=== PATIENT | female | born 1945 | race Hispanic/Latino ===

== ENCOUNTER 2023-07-28 05:56 | Day surgery (SDC) | payer OTHER, MEDICARE ==
[2023-07-23 10:35] LABS: BASOPHILS # (AUTO) 0.04 K/uL (0.00-0.20); BASOPHILS % (AUTO) 0.6 % (0.0-5.0); EOSINOPHILS # (AUTO) 0.17 K/uL (0.00-0.70); EOSINOPHILS % (AUTO) 2.7 % (0.0-8.0); HEMATOCRIT 43.6 % (36-48); IMMATURE GRANULOCYTE ABSOLUTE 0.02 K/uL (0-1); LYMPHOCYTES # (AUTO) 2.4 K/uL (1.0-4.8); LYMPHOCYTES % (AUTO) 38.9 % (21.0-51.0); MEAN CORPUSCULAR HEMOGLOBIN 30.6 pg (27.0-33.0); MEAN CORPUSCULAR VOLUME 92.6 fL (79-99); MONOCYTES # (AUTO) 0.4 K/uL (0.1-1.0); MONOCYTES % (AUTO) 6.5 % (3.0-13.0); NEUTROPHILS # (AUTO) 3.2 K/uL (1.8-7.7); PLATELET COUNT (AUTO) 216 K/uL (130-400); RED BLOOD CELL COUNT(AUTO) 4.71 MIL/uL (4.00-5.50); RED CELL DISTRIBUTION WIDTH 13.4 % (11.0-15.5); WHITE BLOOD COUNT (AUTO) 6.3 K/uL (4.8-10.8)
[2023-07-23 10:45] VITALS: BP 119/66; PULSE 68; RESP 18
[2023-07-23 10:50] LABS: CREATININE 0.6 mg/dL (0.5-1.5); POTASSIUM 4.4 mmol/L (3.5-5.1)
[2023-07-23 10:53] LABS: INR <= 0.93 (0.85-1.15); PROTHROMBIN TIME 10.8 SEC (9.6-11.6)
[2023-07-23 10:54] LABS: PARTIAL THROMBOPLASTIN TIME 28.3 SEC (26.3-35.5)
[~2023-07-28] VITALS: Ht 154.9 cm; Wt 85.9 kg
[2023-07-28] VITALS (12 sets, daily range): BP systolic 101–139; BP diastolic 55–76; PULSE 65–75; RESP 10–22
[~2023-07-28 05:56] MED LIST: GABA-529 PO
[2023-07-28] MEDS: 0.9%NACL 1000ML 1,000 ML IV ONE (06:34)
[2023-07-28] MEDS ORDERED: MULT-1283 PO (06:59)
[2023-07-28] MEDS ORDERED: CALC1TAB2 PO (06:59)
[2023-07-28] MEDS ORDERED: GLUC-252 PO (06:59)
[2023-07-28] MEDS ORDERED: GLUC1CAP7 PO (06:59)
[2023-07-28] MEDS ORDERED: ACET-2027 PO (06:59)
[2023-07-28] MEDS ORDERED: CHOL500051 PO (06:59)
[2023-07-28] MEDS ORDERED: LIDOCAINE HCL 400MG/20ML VIAL ONE (07:06)
[2023-07-28] MEDS ORDERED: IODIXANOL 320 MG/ML 100 ML VIAL ONE (07:06)
[2023-07-28] MEDS ORDERED: HEPARIN 10,000 UNIT/10ML (1,000 UNIT/ML) VIAL ONE (07:07)
[2023-07-28] MEDS ORDERED: NITROGLYCERIN 50MG VIAL ONE (07:07)
[2023-07-28] MEDS ORDERED: MIDAZOLAM HCL 1 MG/ML 2ML VIAL ONE (07:25)
[2023-07-28] MEDS ORDERED: FENTANYL CITRATE PF 50 MCG/1 ML 2ML VIAL ONE (07:25)
[2023-07-28] MEDS: 0.9%NACL 1000ML 1,000 ML IV SCH (08:00)
[2023-07-28] MEDS ORDERED: GLUCAGON 1MG KIT 1 MG ML IM PRN (08:00)
[2023-07-28] MEDS ORDERED: DEXTROSE 50%-WATER 50 ML DISP.SYRIN IV PRN (08:00)
== END 2023-07-28 12:15 | disposition home or self-care (01) ==
LOC: DAH 05:56
PROVIDERS: ATTEND Internal Medicine Cardiovascular Disease
DX: I87.1 Compression of vein (principal); I87.2 Venous insufficiency (chronic) (peripheral); E66.9 Obesity, unspecified; Z79.899 Other long term (current) drug therapy; Z79.01 Long term (current) use of anticoagulants; Z90.49 Acquired absence of other specified parts of digestive tract; Z98.890 Other specified postprocedural states; Z98.41 Cataract extraction status, right eye; Z82.49 Family history of ischemic heart disease and other diseases of the circulatory system; Z82.3 Family history of stroke; Z83.3 Family history of diabetes mellitus; Z80.9 Family history of malignant neoplasm, unspecified; Z68.34 Body mass index [BMI] 34.0-34.9, adult
CPT/HCPCS: 80048; 85025; 85610; 85730; 36415; 75822; 36012; 37252; 37253 ×5; C1769; C1894 ×2; C1753; J3010; J3490 ×2; J7030; J2250; J1644; Q9967; A4215; A4222; A4221; A4663; A4216; A4606; A4223 ×3; 96360; 96361; 99156; 99157

== ENCOUNTER → 2023-09-10 | Outpatient (CLI) | payer OTHER, MEDICARE ==
[~2023-09-10] MED LIST changes: +ACET-2027 PO; +CALC1TAB2 PO; +CHOL500051 PO; +GLUC-252 PO; +GLUC1CAP7 PO; +MULT-1283 PO
[2023-09-10] MEDS: REGADENOSON 0.4 MG/5 ML PF SYG IVP ONE (13:56)
== END | disposition home or self-care (01) ==
LOC: SHCH 07:55
PROVIDERS: ATTEND Internal Medicine Cardiovascular Disease
DX: I20.0 Unstable angina (principal)
CPT/HCPCS: 78452; 96374; 93017; J2785; A9500 ×2

== ENCOUNTER → 2023-09-11 | Outpatient (CLI) | payer OTHER, MEDICARE | LOC: SHCH 08:46 | PROVIDERS: ATTEND Internal Medicine Cardiovascular Disease | DX: I20.0 Unstable angina (principal) | CPT/HCPCS: 93306 ==

== ENCOUNTER → 2023-12-22 | Outpatient (CLI) | payer OTHER, MEDICARE ==
[2023-12-22 16:20] LABS: BASOPHILS # (AUTO) 0.04 K/uL (0.00-0.20); BASOPHILS % (AUTO) 0.6 % (0.0-5.0); EOSINOPHILS # (AUTO) 0.23 K/uL (0.00-0.70); EOSINOPHILS % (AUTO) 3.5 % (0.0-8.0); HEMATOCRIT 39.9 % (36-48); IMMATURE GRANULOCYTE ABSOLUTE 0.02 K/uL (0-1); LYMPHOCYTES # (AUTO) 2.6 K/uL (1.0-4.8); LYMPHOCYTES % (AUTO) 39.9 % (21.0-51.0); MEAN CORPUSCULAR HEMOGLOBIN 30.2 pg (27.0-33.0); MEAN CORPUSCULAR HGB CONC 32.6 g/dL (32.0-36.0); MEAN CORPUSCULAR VOLUME 92.8 fL (79-99); MONOCYTES # (AUTO) 0.5 K/uL (0.1-1.0); MONOCYTES % (AUTO) 8.1 % (3.0-13.0); NEUTROPHILS # (AUTO) 3.1 K/uL (1.8-7.7); NEUTROPHILS % (AUTO) 47.6 % (40.0-77.0); PLATELET COUNT (AUTO) 208 K/uL (130-400); RED CELL DISTRIBUTION WIDTH 13.6 % (11.0-15.5); WHITE BLOOD COUNT (AUTO) 6.6 K/uL (4.8-10.8)
[2023-12-22 16:28] LABS: CREATININE 0.6 mg/dL (0.5-1.0)
[2023-12-22 16:31] LABS: INR 1.01 (0.85-1.15); PROTHROMBIN TIME 10.9 SEC (9.6-11.6)
[2023-12-22 16:32] LABS: PARTIAL THROMBOPLASTIN TIME 27.6 SEC (26.3-35.5)
== END | disposition home or self-care (01) ==
LOC: LAB 13:14
PROVIDERS: ATTEND Internal Medicine Cardiovascular Disease
DX: Z01.812 Encounter for preprocedural laboratory examination (principal); I87.1 Compression of vein; R06.02 Shortness of breath; Z79.899 Other long term (current) drug therapy
CPT/HCPCS: 36415; 80048; 85025; 85610; 85730